=== PATIENT | male | born 1960 | race Two or more races ===

== ENCOUNTER 2024-12-20 09:17 | Emergency (ER) | payer MEDICARE ==
[~2024-12-20] VITALS: Ht 154.9 cm; Wt 69.9 kg
[2024-12-20] MEDS: KETOROLAC TROMETHAMINE 60 MG/2 ML VIAL IM ONE (10:02)
[2024-12-20] MEDS ORDERED: CYCLOBENZAPRINE10 MG PO (10:24)
[2024-12-20 10:33] VITALS: PULSE 78; RESP 16; TEMP 98.2; O2SAT 96
== END 2024-12-20 10:36 | disposition home or self-care (01) ==
LOC: FSED 09:30
DX: M54.50 Low back pain, unspecified (principal); F17.210 Nicotine dependence, cigarettes, uncomplicated
CPT/HCPCS: 96372; 99283; J1885